=== PATIENT | female | born 1960 | race Two or more races ===

== ENCOUNTER 2016-04-28 13:03 | Day surgery (SDC) | payer BC ==
[~2016-04-28] VITALS: Ht 157.5 cm; Wt 78.6 kg
[2016-04-28] MEDS ORDERED: PANTOPRAZOLE (15:43)
[2016-04-28] MEDS ORDERED: LORAZEPAM (15:43)
[2016-04-28] MEDS ORDERED: METFORMIN (15:43)
[2016-04-28 15:44] VITALS: Ht 157.5 cm; Wt 78.6 kg
[2016-04-28] MEDS ORDERED: MIDAZOLAM 1 MG/ML 2 ML INJ ONE (16:27)
[2016-04-28 16:40] VITALS: BP 146/85; PULSE 120; RESP 24
[2016-04-28] MEDS ORDERED: PROPOFOL 20 ML ONE (16:47)
[2016-04-28] MEDS ORDERED: FENTAnyl 50 MCG/ML VIAL ONE (16:47)
[2016-04-28] MEDS ORDERED: ESMOLOL 10 ML ONE (16:53)
[2016-04-28 18:00] VITALS: BP 103/62; PULSE 82; RESP 11
--- NOTE | 2016-04-29 13:24 | GILP ---
DATE OF PROCEDURE: PROCEDURE: Colonoscopy to cecum. BRIEF HISTORY AND INDICATIONS: The patient here for colorectal cancer screening. PREMEDICATION: Monitored anesthesia care by anesthesiologist. SURGEON: Sheron Maxwell MD. INSTRUMENT USED: Olympus colonoscope. PREPARATION: Adequate. TECHNIQUE: After informed consent, with the patient/relatives understanding the procedure, its indic ations potential risks and complications, including but not limited to: allergic reaction, bleeding, perforation, infection, missed lesions and after all pertinent questions were answered to the patie nt's satisfaction, the patient/relatives signed the witnessed informed consent. Following this, premedication was administered slowly IV push by under careful cardiovascular and re spiratory monitoring with pulse oximetry, automatic blood pressure and electronic device monitor. Once the sedativ e effect was achieved, the patient was placed in the left lateral decubitus position, digital rectal examination was performed. The colonoscope was then introduced and advanced under visual control th roughout all segments of the colon including: the rectum, sigmoid, descending colon, splenic flexure , transverse colon, hepatic flexure, ascending colon and finally reaching the cecum which was clearl y identified by transillumination, finger indentation and the ileocecal valve. Careful examination o f the mucosa of the lower gastrointestinal tract both on insertion as well as withdrawal of the inst rument disclosed the following findings: FINDINGS: RECTAL EXAM: No evidence of perirectal disease, no masses. COLONIC FINDINGS: The colonic mucosa is unremarkable throughout. The ileocecal valve was clearly id entified and appears unremarkable. The instrument was withdrawn reexamining the mucosa in detail. No additional abnormalities are noted. IMPRESSION: 1. Normal colonic mucosa to cecum. 2. Moderate sized internal hemorrhoids. PLAN: The patient will follow up as an outpatient. Annual Hemoccult stool testing is recommended a nd screening colonoscopy in 10 years is recommended. Dictated By: SHERON GANDARA Conf#: [id number] DID#: [id number]
--- NOTE | 2016-04-29 13:26 | GILP ---
DATE OF PROCEDURE: 04/28/2016 PROCEDURE: Esophagogastroduodenoscopy with biopsies. BRIEF HISTORY AND INDICATIONS: The patient is being evaluated for abdominal pain. PREMEDICATION: Monitored anesthesia care by anesthesiologist. SURGEON: Sheron Maxwell MD. INSTRUMENT USED: Olympus panendoscope. TECHNIQUE: After informed consent, with the patient/relatives understanding the procedure, its indic ations, potential risks and complications, including but not limited to: allergic reaction, bleeding , perforation or infection, and after all pertinent questions were answered to the patients satisfac tion, the patient/relatives signed witnessed informed consent. Following this, premedication was administered slowly IV push under careful cardiovascular and respi ratory monitoring with pulse oximetry, automatic blood pressure and call or contact centre coach. Once the sedative effect was achieved the patient was place in the left lateral decubitus, the panen doscope was introduced and advanced under visual control. Careful examination of the upper gastrointestinal tract, both on insertion as well as withdrawal of the instrument disclosed the following findings: FINDINGS: ESOPHAGUS: The mucosa of the entire esophagus appears within normal limits. There is no evidence of esophagitis, varices, neoplasm or stricture. No hiatal hernia identified. STOMACH: Upon entrance into the stomach, air was insufflated, the gastric doran distended normally. There was mild erythema and edema of the mucosa of the body and antrum of the stomach. Biopsies wer e obtained to rule out H. pylori infection. PYLORUS: The pylorus appears patent and within normal limits, with no evidence of gastric outlet obs truction. DUODENUM: The duodenal mucosa was carefully examined in the duodenal bulb as well as the second port ion of the duodenum and appears unremarkable with no evidence of duodenitis, ulcer or neoplasm. The instrument was then withdrawn, the patient tolerated the procedure well and was transfer out of the endoscopy suite awake, and in good condition to continue recovery under observation ____ are normal. IMPRESSION: Mild gastritis, rule out Helicobacter pylori infection, biopsies obtained. PLAN: 1. We will continue PPIs, i.e. Protonix 40 mg daily. 2. Pathology will be reviewed as soon as available. Dictated By: SHERON MAXWELL MS/CRICKET Conf#: [id number] DID#: [id number]
== END 2016-04-28 19:05 | disposition home or self-care (01) ==
LOC: GIL 13:03
PROVIDERS: ATTEND Internal Medicine Gastroenterology
DX: Z12.11 Encounter for screening for malignant neoplasm of colon (principal); K64.8 Other hemorrhoids; K21.9 Gastro-esophageal reflux disease without esophagitis; R11.0 Nausea; K29.50 Unspecified chronic gastritis without bleeding
CPT/HCPCS: 43239; 45378; 82962; 88305; 88312; J2250; J3010; Z7610